=== PATIENT | male | born 1955 | race Two or more races ===

== ENCOUNTER 2020-09-15 05:06 | Day surgery (SDC) | payer OTHER ==
[2020-09-12 09:11] VITALS: BMI 21.2
[2020-09-15] MEDS ORDERED: PROPOFOL 20 ML ONE ×5 (12:11)
[2020-09-15] MEDS ORDERED: MIDAZOLAM HCL 2 MG/2 ML SINGLE DOSE VIAL ONE (12:23)
[2020-09-15 14:29] VITALS: BP 112/80; PULSE 50; TEMP 97.8
== END 2020-09-15 14:25 | disposition home or self-care (01) ==
LOC: JASU-SURG 05:06
PROVIDERS: ATTEND Urology
PROC: 0TF4XZZ Fragmentation in Left Kidney Pelvis, External Approach (ICD-10-PCS; principal; 2020-09-15 11:00)
DX: N20.0 Calculus of kidney (principal)
CPT/HCPCS: 94760